=== PATIENT | male | born 2000 | race Caucasian/White ===

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

== ENCOUNTER 2024-04-20 20:30 | Emergency (ER) | payer OTHER ==
[~2024-04-20] VITALS: Ht 188 cm; Wt 81.7 kg
[~2024-04-20 20:30] MED LIST: Augmentin 875-1 EACH PO
[2024-04-20 21:22] LABS: BASOPHILS ABSOLUTE AUTO 0.04 K/mm3 (0.00-0.23); BASOPHILS PERCENT AUTO 0 % (0-2); EOSINOPHILS ABSOLUTE AUTO 0.01 K/mm3 (0.00-0.68); EOSINOPHILS PERCENT AUTO 0 % (0-6); Hematocrit 40.1 % (37.0-53.0); Hemoglobin 14.2 g/dL (13.5-17.5); IMMATURE GRAN ABSOLUTE AUTO 0.11 K/mm3 (0.00-0.10); IMMATURE GRAN PERCENT AUTO 1 % (0-1); LYMPHOCYTES ABSOLUTE AUTO 1.07 K/mm3 (0.84-5.20); LYMPHOCYTES PERCENT AUTO 6 % (21-46); MONOCYTES ABSOLUTE AUTO 0.48 K/mm3 (0.16-1.47); MONOCYTES PERCENT AUTO 3 % (4-13); Mean Corpuscular HGB 28.8 pg (26.0-34.0); Mean Corpuscular HGB Conc 35.4 g/dL (31.5-36.5); Mean Corpuscular Volume 81 fL (80-100); NEUTROPHILS ABSOLUTE AUTO 17.84 K/mm3 (1.96-9.15); NEUTROPHILS PERCENT AUTO 91 % (41-73); Platelet Count 224 K/mm3 (150-400); RDW Coefficient Variation 11.5 % (11.7-14.2); Red Blood Cell Count 4.93 M/mm3 (4.30-5.90); White Blood Cell Count 19.55 K/mm3 (4.00-11.30)
[2024-04-20] MEDS ORDERED: Acetaminophen 500 MG Tab PO ONE (21:35)
[2024-04-20 21:49] LABS: Albumin, Blood 4.3 g/dL (3.4-5.0); Albumin/Globulin Ratio 1.4 (0.8-1.8); Bun/Creatinine Ratio 17.7 (12.0-20.0); Calcium, Blood 8.8 mg/dL (8.5-10.1); Creatinine, Blood 0.85 mg/dL (0.60-1.20); Potassium, Blood 3.6 mmol/L (3.5-5.5); Total Protein, Blood 7.3 g/dL (6.4-8.2)
[2024-04-20] MEDS ORDERED: NS 1,000 ML IV SCH (22:25)
[2024-04-20] MEDS ORDERED: CefTRIAXone Sodium 1,000 MG in NS 50 ML IV ONE (22:25)
[2024-04-20] MEDS ORDERED: Ketorolac Tromethamine 30mg Vial IV ONE (22:30)
[2024-04-20] MEDS ORDERED: Azithromycin 500 MG in NS 250 ML IV ONE (22:30)
[2024-04-20] MEDS ORDERED: Tetrahydrozoline 0.05% Opth Soln 15 ML LEFTEYE SCH (22:30)
[2024-04-21] MEDS ORDERED: Tobramycin 0.3% Opth Soln 5 ML RIGHTEYE ONE (00:20)
[2024-04-21] MEDS ORDERED: Tobrex5 ML RIGHTEYE (00:25)
[2024-04-21] MEDS ORDERED: AZIT250 PO (00:25)
[2024-04-21 00:45] VITALS: BP 108/49
== END 2024-04-21 00:50 | disposition home or self-care (01) ==
LOC: ER 20:30
PROVIDERS: Student in an Organized Health Care Education/Training Program
DX: J18.9 Pneumonia, unspecified organism (principal); E86.0 Dehydration; R10.31 Right lower quadrant pain; H10.9 Unspecified conjunctivitis; S05.01XA Injury of conjunctiva and corneal abrasion without foreign body, right eye, initial encounter; Z59.89 Other problems related to housing and economic circumstances; W44.E9XA Other non-magnetic metal objects entering into or through a natural orifice, initial encounter
CPT/HCPCS: 71046; 74177; 80053; 83605; 85025; 96365-59; 96367; 99284-25; A9270; J0456; J0696; J1885; J7030; J7050; Q9967